=== PATIENT | male | born 1960 | race Caucasian/White ===

== ENCOUNTER → 2018-12-03 | Day surgery (SDC) | payer OTHER ==
[2018-11-28 13:49] VITALS: BP 151/81
[~2018-12-03] VITALS: Ht 167.6 cm; Wt 74.8 kg
[2018-12-03] VITALS (9 sets, daily range): BP systolic 116–133; BP diastolic 68–78
[~2018-12-03] MED LIST: COLACE100 MG PO; FLONASE ALLERG9.9 ML NAS; IBUPROFEN600 MG PO; PERCOCET 5-3251 EACH PO; PROVENTIL HFA6.7 GM INH; SINGULAIR10 M1 PO; XANAX0.5 MG PO
--- NOTE | ~2018-12-03 | EKG ---
[place], [place] ELECTROCARDIOGRAM REPORT NAME: ANYA HORNE UNIT #: [id number] ROOM: DOCTOR: EPIPHANY DRAFT REPORT BIRTHDATE: [birth year] [facility] Test Date: 2018-11-28 Test Time: 15:19:09 Pat Name: ANYA HORNE Department: Room: Gender: M Phlebotomist: : 1960 Requested By: BRUNA MUNGUIA Order Number: [id number] Reading MD: Gurvinder Sigala MD Measurements Intervals [place] Rate: 60 P: 70 [place]: 124 QRS: 47 QRSD: 91 T: 30 QT: 369 QTc: 369 Interpretive Statements Sinus rhythm Atrial premature complex RSR' in V1 or V2, right VCD or RVH No previous ECG available for comparison Electronically Signed On 11-28-2018 18:32:43 PST by Gurvinder Sigala MD CM:EKGRPT:ELECTROCARDIOGRAM REPORT [id number] BRUNA MUNGUIA MD EPIPHANY DRAFT REPORT BRUNA MUNGUIA MD
[2018-12-03 11:27] LABS: BASO % 0.3 % (0.0-1.0); EOS % 0.7 % (1.0-4.0); HEMATOCRIT 44.4 % (42.0-52.0); HEMOGLOBIN 15.4 g/dl (14.0-18.0); LYMPH # 1.1 10*3/uL (1.3-4.4); LYMPH % 19.5 % (27.0-41.0); MEAN CELL VOLUME 91.5 fl (80.0-94.0); MEAN CORPUSCULAR HGB 31.8 pg (27.0-31.0); MEAN CORPUSCULAR HGB CONC 34.7 g/dl (33.0-37.0); MEAN PLATELET VOLUME 9.5 fl (9.6-12.3); MONO # 0.3 10*3/uL (0.1-1.0); MONO % 5.9 % (3.0-9.0); NEUT # 4.2 10*3/uL (2.3-7.9); NEUT % 73.4 % (47.0-73.0); PLATELET COUNT AUTOMATED 300 10*3/uL (130-400); RED BLOOD COUNT 4.85 10*6/uL (4.50-5.90); RED CELL DISTRI WIDTH 13.4 % (0-14.5); WHITE BLOOD COUNT 5.7 10*3/uL (4.8-10.8)
[2018-12-03 11:54] LABS: BUN 14 mg/dl (7-24); CHLORIDE 106 mmol/L (98-107); CREATININE 1.12 mg/dL (0.70-1.30); POTASSIUM 3.6 mmol/L (3.5-5.1); SODIUM 139 mmol/L (136-145)
== END ==
LOC: SDC 11-28 14:00
DX: K40.20 Bilateral inguinal hernia, without obstruction or gangrene, not specified as recurrent (principal); J45.909 Unspecified asthma, uncomplicated; E66.9 Obesity, unspecified; Z68.36 Body mass index [BMI] 36.0-36.9, adult; Z98.890 Other specified postprocedural states; Z79.899 Other long term (current) drug therapy

== ENCOUNTER 2019-02-01 20:49 | Emergency (ER) | payer OTHER ==
[~2019-02-01] VITALS: Ht 170.1 cm; Wt 81.6 kg
== END 2019-02-02 00:50 | disposition expired ==
LOC: ED 20:49
DX: I46.9 Cardiac arrest, cause unspecified (principal); Z79.899 Other long term (current) drug therapy